=== PATIENT | male | born 1990 | race Caucasian/White ===

== ENCOUNTER 2024-06-10 08:44 | Outpatient (CLI) | payer MEDICAID, SELFPAY ==
--- NOTE | 2024-06-10 08:52 | XRR_ITS ---
PROCEDURE INFORMATION: Exam: XR Left Shoulder Exam date and time: 06/10/2024 8:56 AM Age: 33 years old Clinical indication: Left shoulder pain on top of humerus. No specific injury, worsened x few months after lifting weights. Left shoulder pain. TECHNIQUE: Imaging protocol: Radiologic exam of the left shoulder. Views: 2 or more views. COMPARISON: No relevant prior studies available. FINDINGS: Bones/joints: No fracture, dislocation or subluxation. No periosteal reaction or supsicious bone lesion. No significant osteoarthritis. Lungs: The visualized left lung is grossly clear. Soft tissues: No soft tissue swelling is appreciated. XR/XR shoulder LT min 2V* [id number] IMPRESSION: No acute fracture is identified.
== END 2024-06-10 08:45 | disposition home or self-care (01) ==
LOC: RAD 08:49
PROVIDERS: PCP Nurse Practitioner Occupational Health; Visit Provider Internal Medicine
DX: M25.512 Pain in left shoulder (principal)
CPT/HCPCS: 73030